=== PATIENT | male | born 1975 | race Asian ===

== ENCOUNTER 2021-09-25 15:29 | Emergency (ER) | payer OTHER ==
[~2021-09-25] VITALS: Ht 167.6 cm; Wt 73.0 kg
[2021-09-25 15:32] VITALS: BP 166/106
--- NOTE | 2021-09-25 16:02 | RAD ---
CT head without contrast dated 09/25/2021 3:59 PM Comparison: None CLINICAL INDICATION: Right-sided numbness and dizziness TECHNIQUE: Contiguous axial imaging of the head was performed from skull base to vertex. One or more of the following individualized dose reduction techniques were utilized for this examinat ion: 1. Automated exposure control 2. Adjustment of the mA and/or kV according to patient size 3. Use of iterative reconstruction technique. FINDINGS: Ventricles and sulci are within normal limits for age. No midline shift or mass effect. Brain parench yma is of normal attenuation. No hemorrhage or extra-axial collection. Posterior fossa and brainstem unremarkable. Visualized paranasal sinuses and mastoid air cells are clear. No apparent calvarial abnormality. IMPRESSION: No evidence of acute intracranial abnormality. Electronically signed by: Wyatt Da Silva MD (09/25/2021 4:00 PM) [place]
--- NOTE | 2021-09-25 16:07 | PHYS DOC ---
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 He states he closed his eye, and noted a white visiual filed in the left eye but symptoms subsided right away. He states he also developed right upper extremity numbness. He states he developed a slight headache patient also states he had [employer] for lung and he is having abdominal pain. Patient also states he is going to [place] in 2 days and wants to be checked to make sure everything is okay (OSITO JONAS Solo TERRITORY MANAGER [employer]AL SALES) Review of Systems Review of Systems Constitutional: Denies fever or chills [] Eyes: Denies change in visual acuity, redness, or eye pain [] HENT: Denies nasal congestion or sore throat [] Respiratory: Denies cough or shortness of breath [] Cardiovascular: No additional information not addressed in HPI [] GI: Denies abdominal pain, nausea, vomiting, bloody stools or diarrhea [] : Denies dysuria or hematuria [] Musculoskeletal: Denies back pain or joint pain [] Integument: Denies rash or skin lesions [] Neurologic: Denies headache, focal weakness or sensory changes [] Endocrine: Denies polyuria or polydipsia [] All other systems were reviewed and found to be within normal limits, except as documented in this note. (HEIDIOSITO CISNEROS TERRITORY MANAGER [employer]AL SALES) Physical Exam Physical Exam Constitutional: Well developed, well nourished, no acute distress, non-toxic appearance. [] HENT: Normocephalic, atraumatic, bilateral external ears normal, oropharynx moist, no oral exudates, nose normal. [] Eyes: PERRLA, EOMI, conjunctiva normal, no discharge. [] Neck: Normal range of motion, no tenderness, supple, no stridor. [] Cardiovascular:Heart rate regular rhythm, no murmur [] Lungs & Thorax: Bilateral breath sounds clear to auscultation [] Abdomen: Bowel sounds normal, soft, no tenderness, no masses, no pulsatile masses. [] Skin: Warm, dry, no erythema, no rash. [] Back: No tenderness, no CVA tenderness. [] Extremities: No tenderness, no cyanosis, no clubbing, ROM intact, no edema. [] Neurologic: Alert and oriented X 3, normal motor function, normal sensory function, no focal deficits noted. [] Psychologic: Affect normal, judgement normal, mood normal. [] (OSITO JONAS TERRITORY MANAGER [employer] SALES) Current Patient Data Vital Signs Vital Signs Date Time Temp Pulse Resp B/P (MAP) Pulse Ox O2 Delivery O2 Flow Rate FiO2 09/25/21 15:32 98.3 92 16 166/106 (126) 98 Room Air (OSITO JONAS [employer]ITORY MANAGER [employer] SALES) EKG EKG [address] Singh sinus rhythm heart rate 81 no STEMI [] (OSITO JONAS TERRITORY MANAGER [employer] SALES) Radiology/Procedures Radiology/Procedures []PROCEDURE: CT HEAD WO CONTRAST CT head without contrast dated 09/25/2021 3:59 PM Comparison: None CLINICAL INDICATION: Right-sided numbness and dizziness TECHNIQUE: Contiguous axial imaging of the head was performed from skull base to vertex. One or more of the following individualized dose reduction techniques were utilized for this examination: 1. Automated exposure control 2. Adjustment of the mA and/or kV according to patient size 3. Use of iterative reconstruction technique. FINDINGS: Ventricles and sulci are within normal limits for age. No midline shift or mass effect. Brain parenchyma is of normal attenuation. No hemorrhage or extra-axial collection. Posterior fossa and brainstem unremarkable. Visualized paranasal sinuses and mastoid air cells are clear. No apparent calvarial abnormality. IMPRESSION: No evidence of acute intracranial abnormality. Electronically signed by: Wyatt Da Silva MD (09/25/2021 4:00 PM) [facility] [place] SIGNED BY: WYATT DA SILVA MD DATE: 09/25/21 1559 CC: GARETT SUNG DO; OSITO JONAS T[employer]ITORY MANAGER [employer] SAL[employer] ~MTH0 0 (OSITO JONAS TERRITORY MANAGER [employer] SALES) Heart Score C/O Chest Pain: N/A Risk Factors: Risk Factors: DM, Current or recent (<one month) smoker, HTN, HLP, family history of CAD, obesity. Risk Scores: Risk Factors: DM, Current or recent (<one month) smoker, HTN, HLP, family history of CAD, obesity. (OSITO JONAS APRN) Course & Med Decision Making Course & Med Decision Making Pertinent Labs and Imaging studies reviewed. (See chart for details) This is a 46-year-old male patient presented to the ED today to be evaluated for multiple complaints. Patient is complaining of having visual change in the left eye that occurred while at work, symptoms resolved right away. Is also complaining of a slight headache, also complaining of right upper extremity numbness/heaviness which occurred at work after the vision change and it is gone. Also complaining of abdominal pain after eating [employer]. Patient's physical exam is benign. Eye pressures were checked which were normal. CT of the head is negative. Lab work is negative. Blood pressure was initially running high at 160s over low 100s. Patient's labs are negative for any acute findings, EKG is negative. Symptoms have resolved. Discharge to home. Follow- up with PCP (OSITO JONAS APRN) Dragon Disclaimer Dragon Disclaimer This electronic medical record was generated, in whole or in part, using a voice recognition dictation system. (OSITO JONAS APRN) Departure Departure: Impression: Primary Impression: Headache Additional Impressions: Visual changes High blood pressure Abdominal pain Disposition: 01 HOME / SELF CARE / HOMELESS Condition: STABLE Referrals: GARETT SUNG DO (PCP) follow up as soon as you return from your trip Patient Instructions: Abdominal Pain, Headache, FAQs, Visual Disturbances Additional Instructions: You were evaluated in the emergency room, we did a CT of your head which is negative for any acute findings, your EKG is negative, your chest x-ray is negative, your labs are negative for any acute findings. Please follow-up with your primary care doctor as well as the provided neurologist and service center assistant as soon as you return from your trip Attending Signature Attending Signature I have reviewed the PA/BRIM STRETCHING MACHINE OPERATOR's note and plan of care. I was available for consultation as needed during the patient's visit in the emergency department. I agree with the clinical impression, plan, and disposition. (WYATT SINGH DO) Problem Qualifiers Primary Impression: Headache Headache type: unspecified Headache chronicity pattern: acute headache Intractability: not intractable Qualified Codes: R51.9 - Headache, unspecified Additional Impressions: High blood pressure Hypertension type: unspecified Qualified Codes: I10 - Essential (primary) hypertension Abdominal pain Abdominal location: generalized Qualified Codes: R10.84 - Generalized abdominal pain OSITO JONAS APRN Sep 25, 2021 16:07 WYATT SINGH DO Sep 25, 2021 21:52
[2021-09-25 16:08] LABS: BASO % 0 % (0-3); EOS # 0.3 x10^3/uL (0.0-0.7); EOS % 4 % (0-3); HEMOGLOBIN 15.9 g/dL (13.0-17.5); LYMPH # 2.2 x10^3/uL (1.0-4.8); LYMPH % 31 % (24-48); MEAN CORPUSCULAR HEMOGLOBIN 31 pg (25-35); MEAN CORPUSCULAR HGB CONC 35 g/dL (31-37); MEAN CORPUSCULAR VOLUME 90 fL (79-100); MONO # 0.4 x10^3/uL (0.0-1.1); MONO % 5 % (0-9); NEUT # 4.2 x10^3uL (1.8-7.7); NEUT % 60 % (31-73); PLATELET COUNT 292 x10^3/uL (140-400); RED BLOOD COUNT 5.14 x10^6/uL (4.30-5.70); RED CELL DISTRIBUTION WIDTH 13.4 % (11.5-14.5)
[2021-09-25] MEDS ORDERED: TETRACAINE 0.5% OPHTH SOLUTION 4ML BOTTLE. OS ONE (16:15)
[2021-09-25 16:16] LABS: ANION GAP 9 (6-14); BLOOD UREA NITROGEN 13 mg/dL (8-26); BUN/CREATININE RATIO 12 (6-20); CALCIUM 9.3 mg/dL (8.5-10.1); CARBON DIOXIDE 29 mmol/L (21-32); CHLORIDE 101 mmol/L (98-107); CREATININE 1.1 mg/dL (0.7-1.3); GFR 71.8; GLUCOSE 108 mg/dL (70-99); POTASSIUM 4.2 mmol/L (3.5-5.1); SODIUM 139 mmol/L (136-145)
--- NOTE | 2021-09-25 16:17 | RAD ---
Exam Date: 09/25/2021 3:48 PM XR CHEST 1V Indication: Reason: right side numbness and dizziness / Spl. Instructions: / History: . FINDINGS/ IMPRESSION: The cardiac silhouette and pulmonary vasculature are within normal limits. There is no focal consolidation, pleural effusion or pneumothorax. The visualized osseous structures are intact. Electronically signed by: Simeon Arriola MD (09/25/2021 4:14 PM) [facility]
[2021-09-25 17:33] LABS: ALBUMIN 4.4 g/dL (3.4-5.0); ALBUMIN/GLOBULIN RATIO 1.3 (1.0-1.7); TOTAL BILIRUBIN 0.7 mg/dL (0.2-1.0); TOTAL PROTEIN 7.8 g/dL (6.4-8.2)
[2021-09-25 17:34] LABS: ALK PHOS 67 U/L (46-116); ALT (SGPT) 33 U/L (16-63); AST (SGOT) 18 U/L (15-37); MAGNESIUM 2.3 mg/dL (1.8-2.4)
--- NOTE | 2021-09-25 21:25 | EKG ---
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
== END 2021-09-25 18:02 | disposition home or self-care (01) ==
LOC: ER 15:29
DX: R51.9 Headache, unspecified (principal); I10 Essential (primary) hypertension; R10.9 Unspecified abdominal pain
CPT/HCPCS: 36415; 70450; 71045; 80053; 82553; 83735; 83880; 84484; 85025; 85610; 85730; 93005; 99285-25

== ENCOUNTER 2022-02-13 23:57 | Emergency (ER) | payer OTHER ==
[~2022-02-13] VITALS: Ht 170.2 cm; Wt 73.7 kg
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
--- NOTE | 2022-02-14 00:48 | RAD ---
INDICATION: Reason: CHEST PAIN / Spl. Instructions: / History: COMPARISON: September 2021 FINDINGS: Frontal view of chest obtained. No focal airspace consolidation. Cardiomediastinal contour unremarkable. No acute osseous abnormality. IMPRESSION: * No focal airspace consolidation or edema. Electronically signed by: Lukas De La Rosa MD (02/14/2022 12:46 AM) [id number]
--- NOTE | 2022-02-14 00:54 | EKG ---
[address] [address] Test Date: 2022-02-14 Test Time: 00:05:05 Pat Name: SONNY ROWLAND Department: Room: Gender: M [employer] Ro[employer]: : 1975 Requested By: DENA GASPAR Order Number: [id number] Reading MD: Fernando Yap MD Measurements Intervals [place] Rate: 65 P: 26 IA: 160 QRS: 36 QRSD: 84 T: 36 QT: 374 QTc: 394 Interpretive Statements SINUS RHYTHM Electronically Signed On 02-16-2022 8:56:49 CDT by Fernando Yap MD
[2022-02-14] MEDS ORDERED: PANTOPRAZOLE IV 40 MG VIAL. IVP ONE (01:00)
[2022-02-14] MEDS ORDERED: FAMOTIDINE 20 MG/2 ML VIAL IVP ONE (01:00)
[2022-02-14 01:22] LABS: CALCIUM 8.5 mg/dL (8.5-10.1); CREATININE 1.2 mg/dL (0.7-1.3); GFR 64.6; POTASSIUM 3.8 mmol/L (3.5-5.1)
[2022-02-14 01:24] LABS: BASO % 0 % (0-3); EOS # 0.2 x10^3/uL (0.0-0.7); EOS % 4 % (0-3); HEMATOCRIT 42.7 % (39.0-53.0); HEMOGLOBIN 14.5 g/dL (13.0-17.5); LYMPH # 3.1 x10^3/uL (1.0-4.8); LYMPH % 53 % (24-48); MEAN CORPUSCULAR HEMOGLOBIN 31 pg (25-35); MEAN CORPUSCULAR HGB CONC 34 g/dL (31-37); MEAN CORPUSCULAR VOLUME 90 fL (79-100); MONO # 0.4 x10^3/uL (0.0-1.1); MONO % 7 % (0-9); NEUT # 2.1 x10^3uL (1.8-7.7); NEUT % 37 % (31-73); PLATELET COUNT 251 x10^3/uL (140-400); RED BLOOD COUNT 4.74 x10^6/uL (4.30-5.70); RED CELL DISTRIBUTION WIDTH 13.3 % (11.5-14.5); WHITE BLOOD COUNT 5.8 x10^3/uL (4.0-11.0)
[2022-02-14 01:30] LABS: ALBUMIN 3.5 g/dL (3.4-5.0); ALBUMIN/GLOBULIN RATIO 1.2 (1.0-1.7); TOTAL BILIRUBIN 0.5 mg/dL (0.2-1.0); TOTAL PROTEIN 6.4 g/dL (6.4-8.2)
[2022-02-14 02:02] LABS: BARBITURATES NEG (NEG); BENZODIAZEPINES NEG (NEG); CANNABINOIDS NEG (NEG); COCAINE NEG (NEG); METHADONE NEG (NEG); OPIATES NEG (NEG); PHENCYCLIDINE NEG (NEG)
[2022-02-14 02:09] VITALS: BP 126/75
[2022-02-14 02:11] LABS: BACTERIA,URINE 0 /HPF (0-FEW); CLARITY,URINE CLEAR; COLOR,URINE YELLOW; GLUCOSE,URINE NEG (NEG); NITRITE,URINE NEG (NEG); RBC,URINE 0 /HPF (0-2); UROBILINOGEN,URINE 0.2 mg/dL (0.2 mg/dL); WBC,URINE 0 /HPF (0-4)
[2022-02-14 02:12] LABS: AMPHETAMINE/METHAMPHETAMINE NEG (NEG)
== END 2022-02-14 02:10 | disposition home or self-care (01) ==
LOC: ER 23:57
DX: R07.89 Other chest pain (principal); I10 Essential (primary) hypertension
CPT/HCPCS: 36415; 71045; 80053; 80307; 81001; 84484; 85025; 93005; 96374; 96375; 99285; C9113; J3490